=== PATIENT | female | born 1945 | race African-American/Black ===

== ENCOUNTER → 2017-01-14 | Day surgery (SDC) | payer MEDICARE, BC ==
[~2017-01-14] MED LIST: ALBU2.5V14 NEB; ASPI-630 PO; CETI10TA22 PO; FLUT1DIS5 IH; FURO40TA4 PO; HYDROmorphone 2 MG/ML VIAL IV PRN; IV RINGERS,LACTATED 1000ML 1,000 ML IV SCH; LEVO75TA67 PO; LIDOCAINE 1% 1 ML SYRINGE. ID PRN; METF500T4 PO; MORPHINE SULFATE 2 MG/ML DISP.SYRIN. IV PRN; OMEP20TA8 PO; ONDANSETRON PF 4 MG/2 ML VIAL. IV PRN; PROCHLORPERAZINE 10 MG/2 ML VIAL. IV PRN; PROPOFOL 20 ML IV ONE; RAMI10CA PO; SIMV40TA3 PO; fentaNYL PF VIAL 100 MCG/2 ML VIAL IV PRN
--- NOTE | 2017-01-14 09:41 | PDOC1 ---
HISTORY & PHYSICAL H&P Nidhi Oliva [id number] 1945 12/17/2016 03:20 PM 07/07 Mygeni [facility] PATIENTS [facility] [address] [place] [address] Ph. [phone] Patient: Nidhi Oliva Date of : 1945 Date: 12/17/2016 3:20 PM Visit Type: Consult This 71 year old female presents for H/o colorectal polyp. History of Present Illness: 1. H/o colorectal polyp Prior screening: colonoscopy. Denies risk factors. Pertinent negatives include abdominal pain, change in bowel habits, change in stool caliber, constipation, decreased appetite, diarrhea, melena, nausea, rectal bleeding, vomiting, weight gain and weight loss. Additional information: No family history of colon cancer, No family history of Crohn's/colitis and No NSAID/ASA use. INTAKE COMMENTS: Intake Comments: Nurse Note: the pt is here today to repeat a colonoscopy due to colon polyps in 2009. PROBLEM LIST: Problem Description Onset Date Diarrhea of presumed infectious origin 01/22/2016 Diabetes mellitus without complication 09/12/2009 Tendinitis of left shoulder 11/27/2015 Acute pain of left shoulder 11/27/2015 Insomnia, unspecified type 02/06/2016 Obstructive sleep apnea syndrome 02/06/2016 Acute vaginitis 08/01/2015 Diabetes type 2, controlled 11/27/2015 Impacted cerumen of right ear 01/22/2016 Acute recurrent maxillary sinusitis 01/22/2016 Acute bronchitis, unspecified organism 08/21/2015 Allergic rhinitis 07/10/2012 Morbid (severe) obesity due to excess calories 08/29/2015 Diabetes mellitus type 2, controlled, without complications 06/16/2015 Morbid obesity due to excess calories 02/06/2016 Vitamin D deficiency 08/23/2013 Benign essential hypertension 09/12/2009 Gastroesophageal reflux disease 09/12/2009 Hyperlipidemia 09/12/2009 Asthma 09/12/2009 PAST MEDICAL/SURGICAL HISTORY (Detailed) Disease/disorder Onset Date Management Date Comments Appendectomy Partial Hysterectomy Thyroidectomy Colonoscopy 2009 EGD 2009 Bronchial asthma Colonic polyp tubular adenoma DM GERD HTN Hyperlipidemia DIAGNOSTICS HISTORY: Test Ordered Interpretation Result completed EGD 02/10/2009 abnormal gastritis, Reflux esophagitis and mild esophageal stricture. Slight reactive changes 02/16/2009 COLONOSCOPY AND BIOPSY 08/22/2009 Abnormal Polyp in [place] colon Bx pending 2009 Mammogram 02/22/2009 Normal 02/22/2009 EKG 05/25/2008 Abnormal 05/25/2008 DM eye exam 11/11/2008 Normal 11/11/2008 Test Ordered Ordering Comments Modifier EGD 02/10/2009 Pt received verbal and written instructions[facility] [place] COLONOSCOPY AND BIOPSY 08/22/2009 Mammogram 02/22/2009 Diagnostic Images EKG 05/25/2008 Cardiac Studies DM eye exam 11/11/2008 Other Reports Patient is postmenopausal. Type of menopause is hysterectomy w/o ooph . Medications (Active): Started Medication Directions Instruction Stopped 12/18/2015 Advair Diskus 500 mcg-50 mcg/dose powder for inhalation inhale 1 puff by Inhalation route 2 times every day morning and eveningapproximately 12 hours apart 10/05/2014 albuterol sulfate 2.5 mg/3 mL (0.083 %) solution for nebulization inhale 3 milliliter by nebulization route 4 times every day as needed asthma 493.90 02/08/2009 aspirin 81 mg Tab, Delayed Release take 1 tablet (81MG) by ORAL route every day 02/08/2009 Calcium 600 + D(3) 600 mg-400 unit Tab 1 tab po daily 02/08/2009 Centrum Silver Tab 1 tab po daily 05/24/2013 Flonase 50 mcg/Actuation Nasal [place] inhale 2 spray by Intranasal route every day in each nostril 12/09/2016 FUROSEMIDE TABS 40MG TAKE 1 TABLET DAILY garlic 12/09/2016 L-THYROXINE (SYNTHROID) TABS 75MCG TAKE 1 TABLET DAILY 08/23/2013 Lancets,Ultra Thin 26 gauge to check blood sugar once daily dx: 250.09 12/09/2016 METFORMIN HCL TABS 500MG TAKE 1 TABLET TWICE A DAY WITH MORNING AND EVENING MEALS 04/06/2014 omeprazole 20 mg capsule,delayed release take 1 capsule (20MG) by oral route every day before a meal 05/24/2013 One Touch Ultra 2 Kit check blood sugars once a day dx250:90 08/23/2013 One Touch Ultra Test strips instill 1 Strip by Injection route every day put strip in one touch glucometer dx:250.09 08/29/2016 ProAir HFA 90 mcg/actuation aerosol inhaler inhale 2 puff by inhalation route every 6 hours as needed 12/09/2016 RAMIPRIL CAPS 10MG TAKE 1 CAPSULE DAILY 12/09/2016 SIMVASTATIN TABS 40MG TAKE 1 TABLET EVERY EVENING 06/01/2013 Singulair 10 mg tablet take 1 tablet (10MG) by oral route every day in the evening Symbicort 160 mcg-4.5 mcg/actuation HFA aerosol inhaler inhale 2 puff by inhalation route 2 times every day in the morning and evening 06/18/2016 Synthroid 125 mcg tablet take 1/2 tablet by oral route every day Please give her scored tablets. tobramycin 0.3 %-dexamethasone 0.1 % eye drops,suspension instill 1 drop by ophthalmic route every 4 hours into affected eye(s) 01/27/2015 Tylenol Extra Strength 500 mg tablet take 2 tablets by Oral route bid in AM and at bedtime 06/16/2015 Vitamin D3 1,000 unit capsule 1 daily 08/29/2014 Zyrtec 10 mg tablet take 1 tablet by ORAL route every day at bedtime Allergies: Ingredient Reaction Medication Name Comment NO KNOWN ALLERGIES REVIEW OF SYSTEMS System Neg/Pos Details Constitutional Negative Chills, fever, malaise, weight gain and weight loss. ENMT Negative Sore throat. Eyes Negative Double vision. Respiratory Negative Dyspnea and wheezing. Cardio Negative Chest pain and irregular heartbeat/palpitations. GI Positive See HPI. GI Negative Abdominal pain, change in bowel habits, change in stool caliber, constipation, decreased appetite, diarrhea, melena, nausea, see HPI, rectal bleeding and vomiting. Negative Dysuria and hematuria. Endocrine Negative Cold intolerance and heat intolerance. Psych Negative Anxiety. Integumentary Negative Hives and rash. MS Negative Joint pain. Osvaldo/Lymph Negative Easy bleeding and easy bruising. Allergic/Immuno Negative Food allergies. Reproductive Positive The patient is post-menopausal (The menopause was hysterectomy w/o ooph). VITAL SIGNS Time BP mm/Hg Pulse /min Resp /min Temp F Ht ft Ht in Ht cm Wt lb Wt kg BMI kg/ m2 BSA m2 O2 Sat% 3:44 PM 150/80 92 98.4 0.0 59.75 151.76 218.00 98.883 42.93 95 Time Measured by 3:44 PM Whitney Gema PHYSICAL EXAM: Exam Findings Details Constitutional Normal Well developed. Eyes Normal Conjunctiva - Right: Normal, Left: Normal. Sclera - Right: Normal, Left: Normal. Nasopharynx Normal Lips/teeth/gums - Normal. Neck Exam Normal Inspection - Normal. Thyroid gland - Normal. Respiratory Normal Inspection - Normal. Auscultation - Normal. Cardiovascular Normal Regular rate and rhythm. No murmurs, gallops, or rubs. Vascular Normal Pulses - Carotids: Normal, Femoral: Normal, Dorsalis pedis: Normal. Abdomen Normal Inspection - Normal. Anterior palpation - No guarding. No abdominal tenderness. No hepatic enlargement. No splenic enlargement. No hernia. No Ascites. Skin Normal Inspection - Normal. Extremity Normal No edema. Psychiatric Normal Oriented to time, place, person, and situation. Appropriate mood and effect. Assessment/Plan # Detail Type Description 1. Assessment History of colon polyps (Z86.010). Patient Plan schedule colonoscopy at [facility] [place] Plan Orders Further diagnostic evaluations ordered today include(s) Colonoscopy to be performed today. She is to schedule a follow-up visit with Oral Madrid MD upon completion of work-up Electronically signed by: Oral Madrid MD 12/17/2016 04:36 PM Document generated by: Oral Madrid 12/17/2016 04:36 PM Gorge Tong MD, Family Practice; Francesco Sumner MD Internal Medicine; Ramiro Cast MD, Internal Medicine; Sienna Madrid MD Internal Medicine; Oral Madrid MD, Gastroenterology; Bear Miller MD, Rheumatology, S. Esa Leahy, Physical Medicine/Rehab Andres Rodriguez APRN ------ 01/14/17 Patient seen and examined. No change in H&P ORAL MADRID MD 11, 2017 09:41
[2017-01-14 10:45] VITALS: BP 189/98
== END | disposition home or self-care (01) ==
LOC: ENDOS 08:25
PROVIDERS: ATTEND Internal Medicine Gastroenterology
DX: Z09 Encounter for follow-up examination after completed treatment for conditions other than malignant neoplasm (principal); Z87.19 Personal history of other diseases of the digestive system; E78.00 Pure hypercholesterolemia, unspecified; J44.9 Chronic obstructive pulmonary disease, unspecified; K21.9 Gastro-esophageal reflux disease without esophagitis; E03.9 Hypothyroidism, unspecified; Z86.39 Personal history of other endocrine, nutritional and metabolic disease; Z90.710 Acquired absence of both cervix and uterus
CPT/HCPCS: 45378; 82962; J2704